=== PATIENT | male | born 1955 | race Caucasian/White ===

== ENCOUNTER 2018-07-02 12:03 | Day surgery (SDC) | payer OTHER ==
[~2018-07-02 12:03] MED LIST: ROCURONIUM 50 MG INJ
[2018-07-02] MEDS ORDERED: LIDOCAINE 1%/EPI 30 ML INJ (12:09)
[2018-07-02] MEDS ORDERED: MIDAZOLAM 1 MG/ML 2 ML INJ (12:10)
[2018-07-02] MEDS ORDERED: EPINEPHrine 1 MG INJ ×2 (12:10→14:16)
[2018-07-02] MEDS ORDERED: NA HYALURONATE/CHONDROITIN 0.5 ML SYG (12:10)
[2018-07-02] MEDS ORDERED: TETRACAINE 0.5% 4 ML OPH (12:10)
[2018-07-02] MEDS ORDERED: CARBACHOL 0.01% 1.5 ML OPH INJ (12:10)
[2018-07-02] MEDS ORDERED: TOBRAMYCIN 0.3% 3.5 GM OPH OINT (12:10)
[2018-07-02] MEDS ORDERED: TROPICAMIDE 1% 3 ML OPH (12:18)
[2018-07-02] MEDS ORDERED: PHENYLephrine 10% 5 ML OPH (12:18)
[2018-07-02] MEDS ORDERED: MOXIFLOXACIN 0.5% 3 ML OPH (12:19)
[2018-07-02] MEDS ORDERED: DICLOFENAC 0.1% 2.5 ML OPH (12:19)
[2018-07-02] MEDS ORDERED: DICLOFENAC 0.1% 2.5 ML OPH OPER (12:27)
[2018-07-02] MEDS: TROPICAMIDE 1% 3 ML OPH OPER (12:32)
[2018-07-02] MEDS: PHENYLephrine 10% 5 ML OPH OPER (12:32)
[2018-07-02] MEDS: MOXIFLOXACIN 0.5% 3 ML OPH OPER (12:33)
[2018-07-02] MEDS: DICLOFENAC 0.1% 2.5 ML OPH OPER (12:37)
[2018-07-02] MEDS: LIDOCAINE 3.5% GEL TUBE OPER (12:56)
[2018-07-02] MEDS: CARBACHOL 0.01% 1.5 ML OPH INJ RIGHT EYE (13:00)
[2018-07-02] MEDS: SODIUM HYALURONATE 14 MG/ML SYG IO (13:00)
[2018-07-02] MEDS ORDERED: LIDOCAINE 100 MG SYRINGE (13:23)
[2018-07-02] MEDS ORDERED: SUGAMMADEX SODIUM 200 MG/2 ML VIAL IV (13:23)
[2018-07-02] MEDS ORDERED: SUCCINYLCHOLINE CHLORIDE 100 MG/5 ML SYG IV (13:23)
[2018-07-02] MEDS ORDERED: PROPOFOL 20 ML (13:23)
[2018-07-02] MEDS ORDERED: FENTAnyl 50 MCG/ML VIAL IV (13:30)
[2018-07-02] MEDS ORDERED: DEXAMETHASONE 4 MG/ML 1 ML INJ (14:14)
[2018-07-02] MEDS ORDERED: GENTAMICIN 80 MG INJ (14:16)
[2018-07-02] MEDS: DEXAMETHASONE 4 MG/ML 1 ML INJ INJ (14:20)
[2018-07-02] MEDS: GENTAMICIN 80 MG INJ INJ (14:20)
[2018-07-02] MEDS ORDERED: SODIUM HYALURONATE 14 MG/ML SYG (15:03)
[2018-07-02 15:21] LABS: ADD MAN DIFF? NO
[2018-07-02 15:23] LABS: WHITE BLOOD COUNT 12.7 10^3/ul (4.8-10.8)
[2018-07-02 15:23] LABS: BASOPHILS % 0.3 % (0.0-2.0); EOSINOPHILS # 0.1 10^3/ul (0.0-0.5); EOSINOPHILS % 0.7 % (0.0-7.0); HEMATOCRIT 41.1 % (42.0-52.0); HEMOGLOBIN 12.8 g/dl (14.0-18.0); MEAN CORPUSCULAR HEMOGLOBIN 25.8 pg (29.0-33.0); MEAN CORPUSCULAR HGB CONC 31.1 g/dl (32.0-37.0); MEAN CORPUSCULAR VOLUME 82.9 fl (82.0-101.0); MEAN PLATELET VOLUME 9.6 fl (7.4-10.4); MONOCYTE # 0.7 10^3/ul (0.3-0.9); MONOCYTES % 5.1 % (0.0-11.0); NEUTROPHIL # 9.8 10^3/ul (1.6-7.5); NEUTROPHILS % 77.3 % (39.0-77.0); PLATELET COUNT 337 10^3/UL (140-415); RED BLOOD COUNT 4.96 10^6/ul (4.70-6.10); RED CELL DISTRIBUTION WIDTH 13.6 % (11.5-14.5)
[2018-07-02] MEDS ORDERED: TRYPAN BLUE 0.5 ML SYG IO (15:30)
[2018-07-02 15:32] LABS: HOLD TRANSMISSIONS 1
[2018-07-02 15:41] LABS: INR 0.98; PROTIME 13.1 Sec (11.9-14.9)
[2018-07-02 15:45] LABS: PARTIAL THROMBOPLASTIN TIME 35.6 Sec (23.0-35.0)
[2018-07-02 15:46] LABS: ALANINE AMINOTRANSFERASE 25 IU/L (13-69); ALBUMIN 3.6 g/dl (3.3-4.9); ALKALINE PHOSPHATASE 91 IU/L (42-121); ANION GAP 9 (5-13); ASPARTATE AMINO TRANSFERASE 17 IU/L (15-46); BILIRUBIN,INDIRECT 0.2 mg/dl (0-1.1); BILIRUBIN,TOTAL 0.2 mg/dl (0.2-1.3); BLOOD UREA NITROGEN 10 mg/dl (7-20); CALCIUM 8.8 mg/dl (8.4-10.2); CARBON DIOXIDE 25 mmol/L (21-31); CHLORIDE 107 mmol/L (97-110); CREATININE 0.72 mg/dl (0.61-1.24); Estimated GFR > 60 mL/min (>60); GLUCOSE 105 mg/dl (70-220); POTASSIUM 4.7 mmol/L (3.5-5.1); SODIUM 141 mmol/L (135-144); TOTAL PROTEIN 7.2 g/dl (6.1-8.1)
[2018-07-02] MEDS: ACETAZOLAMIDE 250 MG TAB PO (16:46)
== END 2018-07-02 16:54 | disposition home or self-care (01) ==
LOC: SDS 12:03
DX: H25.11 Age-related nuclear cataract, right eye (principal)
CPT/HCPCS: 66984; 80053; 85025; 85610; 85730